=== PATIENT | male | born 1990 | race Caucasian/White ===

== ENCOUNTER 2021-06-05 13:13 | Emergency (ER) | payer OTHER ==
[~2021-06-05] VITALS: Ht 177.8 cm; Wt 145.1 kg
[2021-06-05 13:20] VITALS: BP 203/114
[2021-06-05 15:11] LABS: BASOPHILS % (AUTO) 0.4 % (0.0-2.0); EOSINOPHILS # (AUTO) 0.1 K/uL (0-0.4); HEMATOCRIT 43.7 % (36-52); HEMOGLOBIN 14.4 g/dL (12.0-18.0); LYMPHOCYTES # (AUTO) 0.9 K/uL (2.0-11.5); LYMPHOCYTES % (AUTO) 11.2 % (20.5-51.1); MEAN CORPUSCULAR HEMOGLOBIN 27 pg (27-31); MEAN CORPUSCULAR HGB CONC 33 g/dL (33-37); MEAN CORPUSCULAR VOLUME 82.8 fL (80-94); MONOCYTES # (AUTO) 0.5 K/uL (0.8-1.0); NEUTROPHILS # (AUTO) 6.4 K/uL (1.8-7.7); NEUTROPHILS % (AUTO) 81.4 % (42.2-75.2); PLATELET COUNT (AUTO) 244 K/uL (140-450); RED BLOOD CELL COUNT(AUTO) 5.28 MIL/uL (4.20-6.10); RED CELL DISTRIBUTION WIDTH 14.2 % (11.6-13.7); WHITE BLOOD COUNT (AUTO) 7.9 K/uL (4.8-10.8)
[2021-06-05 15:36] LABS: ANION GAP 9.2 (8-16); CARBON DIOXIDE 30.2 mmol/L (21-32); CREATININE 1.1 mg/dL (0.6-1.3); POTASSIUM 4.4 mmol/L (3.5-5.1)
[2021-06-05 16:16] VITALS: BP 126/50
== END 2021-06-05 16:16 | disposition home or self-care (01) ==
LOC: MED 13:13
DX: F41.9 Anxiety disorder, unspecified (principal); E66.9 Obesity, unspecified; E11.9 Type 2 diabetes mellitus without complications
CPT/HCPCS: 36415; 80048; 84443; 84484; 85025; 93005; 99284

== ENCOUNTER 2021-07-29 03:18 | Emergency (ER) | payer OTHER ==
--- NOTE | 2021-07-29 03:30 | NUR ---
PATIENT CALL TO TRIAGE NO RESPONSE PATIENT LEFT WITHOUT BEING SEEN BY DR. RIVERA. NO FURTHER CARE PROVIDED FOR PATIENT.
--- NOTE | 2021-07-29 03:35 | NUR ---
CALLED FOR THE SECOND TIME ,NO RESPONSE
--- NOTE | 2021-07-29 03:45 | NUR ---
CALLED FOR THE THIRD TIME, NO RESPONSE, HE WENT HOME
== END 2021-07-29 03:30 | disposition left against medical advice (07) ==
LOC: MED 03:18
DX: E16.2 Hypoglycemia, unspecified (principal); Z53.21 Procedure and treatment not carried out due to patient leaving prior to being seen by health care provider

== ENCOUNTER 2021-08-02 08:34 | Emergency (ER) | payer OTHER ==
[~2021-08-02] VITALS: Ht 177.8 cm; Wt 160.6 kg
[2021-08-02 08:49] VITALS: BP 152/116
[2021-08-02 09:37] VITALS: BP 152/116
--- NOTE | 2021-08-02 09:37 | NUR ---
Patient discharged with v/s stable. Written and verbal after care instructions given and explained. Patient verbalized understanding. Ambulatory to car. All questions addressed prior to discharge. Advised to follow up with PMD.
== END 2021-08-02 09:37 | disposition home or self-care (01) ==
LOC: MED 08:34
DX: I10 Essential (primary) hypertension (principal); F17.210 Nicotine dependence, cigarettes, uncomplicated
CPT/HCPCS: 99281

== ENCOUNTER 2022-06-01 03:02 | Emergency (ER) | payer OTHER ==
[~2022-06-01] VITALS: Ht 177.8 cm; Wt 145.1 kg
[2022-06-01 03:11] VITALS: BP 144/89
--- NOTE | 2022-06-01 03:11 | NUR ---
TO BED AMBULATORY
--- NOTE | 2022-06-01 03:28 | NUR ---
Patient being evaluated by physician Jeffrey at bedside.
[2022-06-01 03:59] VITALS: BP 144/89
--- NOTE | 2022-06-01 04:00 | NUR ---
pt came in to be revaluate if for hypoglecymic. pt had a feeling that his sugar is low, pt is alert and oriented x 4. Pt denies diziness, sweating.
--- NOTE | 2022-06-01 04:02 | NUR ---
Patient discharged with v/s stable. Written and verbal after care instructions given and explained. Patient verbalized understanding. Ambulatory with steady gait. All questions addressed prior to discharge. Advised to follow up with PMD. Pt went home with his belonging
== END 2022-06-01 03:59 | disposition home or self-care (01) ==
LOC: MED 03:02
DX: R20.0 Anesthesia of skin (principal); R42 Dizziness and giddiness; F17.200 Nicotine dependence, unspecified, uncomplicated
CPT/HCPCS: 99281

== ENCOUNTER 2022-06-14 02:46 | Emergency (ER) | payer OTHER ==
--- NOTE | 2022-06-14 03:10 | NUR ---
CALLED TO TRIAGE, NO ANSWER
--- NOTE | 2022-06-14 03:25 | NUR ---
CALLED TO TRIAGE, NO ANSWER
--- NOTE | 2022-06-14 03:38 | NUR ---
CALLED TO TRIAGE, NO ANSWER. PT LWBS
== END 2022-06-14 03:10 | disposition left against medical advice (07) ==
LOC: MED 02:46
DX: E11.649 Type 2 diabetes mellitus with hypoglycemia without coma (principal); Z79.4 Long term (current) use of insulin; Z79.899 Other long term (current) drug therapy; Z53.21 Procedure and treatment not carried out due to patient leaving prior to being seen by health care provider

== ENCOUNTER 2023-12-30 03:45 | Emergency (ER) | payer OTHER ==
[~2023-12-30 03:45] MED LIST: ACET-8905 PO
== END 2023-12-30 04:20 | disposition left against medical advice (07) ==
LOC: MED 03:45
DX: R53.1 Weakness (principal); Z53.21 Procedure and treatment not carried out due to patient leaving prior to being seen by health care provider